=== PATIENT | female | born 1975 | race Hispanic/Latino ===

== ENCOUNTER → 2018-01-26 | Outpatient (CLI) | payer OTHER, SELFPAY | END | disposition home or self-care (01) | LOC: RAH 09:06 | PROVIDERS: ATTEND Internal Medicine Critical Care Medicine | DX: Z12.31 Encounter for screening mammogram for malignant neoplasm of breast (principal) | CPT/HCPCS: 77067 ==

== ENCOUNTER 2024-01-18 11:48 | Emergency (ER) | payer BC, OTHER ==
[~2024-01-18] VITALS: Ht 142.2 cm; Wt 78.9 kg
[2024-01-18 12:06] VITALS: TEMP 98.1
[2024-01-18] MEDS: DiphenhydrAMINE HCL 50 MG/ML VIAL IV ONE (12:14)
[2024-01-18] MEDS: dexaMETHasone SOD PHOSPHATE 4 MG/ML 1ML VIAL IVP ONE (12:17)
[2024-01-18] MEDS: 0.9%NACL 1000ML 1,000 ML IV ONE (12:18)
[2024-01-18] MEDS: FAMOTIDINE 20MG VIAL IV ONE (12:18)
[2024-01-18] MEDS ORDERED: DIPH-1242 PO (13:13)
[2024-01-18 13:15] VITALS: BP 139/66; PULSE 66; RESP 17; O2SAT 99
== END 2024-01-18 13:51 | disposition home or self-care (01) ==
LOC: EDH 11:48
DX: T63.441A Toxic effect of venom of bees, accidental (unintentional), initial encounter (principal); R22.0 Localized swelling, mass and lump, head; M79.89 Other specified soft tissue disorders; E11.9 Type 2 diabetes mellitus without complications; I10 Essential (primary) hypertension; K21.9 Gastro-esophageal reflux disease without esophagitis; Z90.49 Acquired absence of other specified parts of digestive tract; Z98.890 Other specified postprocedural states; Y92.89 Other specified places as the place of occurrence of the external cause
CPT/HCPCS: 99284; 96374; 96361; 96375; J1100; J3490; J7030